=== PATIENT | female | born 1990 | race Caucasian/White ===

== ENCOUNTER 2018-09-08 21:34 | Day surgery (SDC) | payer SELFPAY ==
[~2018-09-08] VITALS: Ht 165.1 cm; Wt 111.4 kg
[2018-09-08 20:06] LABS: BASOPHILS 0.2 % (0-2); EOSINOPHILS 0.4 % (0-7); HEMATOCRIT 41.6 % (36.0-48.0); HEMOGLOBIN 14.7 g/dL (12-16); IMMATURE GRANULOCYTES 0.2 % (0-5); LYMPHOCYTES 20.2 % (15-50); MCH 28.8 pg (26.0-34.0); MCHC 35.3 g/dL (31.0-37.0); MCV 81.4 fL (80.0-100.0); MEAN PLATELET VOLUME 10.1 fL (7.4-10.4); MONOCYTES 5.3 % (2-11); NEUTROPHILS 73.7 % (40-80); PLATELET COUNT 290 10x3/uL (130-400); RBC 5.11 10x6/uL (4.00-5.40); RDW 13.3 % (11.5-14.5); WBC 9.5 10x3/uL (4.8-10.8)
[2018-09-08 20:26] LABS: ALKALINE PHOSPHATASE 47 U/L (46-116); ALT (SGPT) 24 U/L (10-68); BILIRUBIN - TOTAL 0.77 mg/dL (0.2-1.3); CALC OSMOLALITY 279 mosm/kg (275-300); CALCIUM 9.2 mg/dL (8.5-10.1); CHLORIDE - SERUM 105 mmol/L (98-107); CREATININE - SERUM 0.9 mg/dL (0.6-1.3); GLUCOSE 102 mg/dL (74-106); POTASSIUM - SERUM 3.3 mmol/L (3.5-5.1); SODIUM 141 mmol/L (136-145); UREA NITROGEN 10 mg/dL (7-18); eGFR NON AFRICAN AMERICAN 78 mL/min (90-120)
[2018-09-08 20:53] LABS: APPEARANCE CLEAR (CLEAR); BILIRUBIN NEGATIVE (NEGATIVE); COLOR YELLOW (YELLOW); GLUCOSE NEGATIVE (NEGATIVE); KETONE SMALL mg/dL (NEGATIVE); NITRITE NEGATIVE (NEGATIVE); PROTEIN NEGATIVE (NEGATIVE); UROBILINOGEN NORMAL (NORMAL)
[2018-09-08 20:54] LABS: EPITHELIAL CELLS 0-5 /hpf (0-5); RED CELLS - URINE NONE SEEN /hpf (0-5); WHITE CELLS - URINE NSEEN /hpf (0-5)
[2018-09-08 21:18] LABS: AMYLASE - SERUM 45 U/L (25-115); LIPASE 90 U/L (73-393)
--- NOTE | 2018-09-09 01:00 | NUR ---
PATIENT RECEIVED FROM RECOVERY IN STABLE CONDITION.
[2018-09-09 01:02] VITALS: BP 125/64; Ht 165.1 cm; Wt 111.4 kg
--- NOTE | 2018-09-09 01:02 | NUR ---
ADMISSION ASSESSMENT AND HISTORY DONE AT THIS TIME. PT WITH 18 GAUGE SALINE LOCK TO RIGHT A/C, TWO LAPAROSCOPIC INCISIONS TO ABDOMEN, ONE TO THE RIGHT ABDOMEN AND ONE IN THE UMBILICUS, ONE LOW TRANSVERSE ABDOMINAL INCISION NOTED. ALL CLOSED WITH GLUE AND WELL APPROXIAMATED. PAD IN PLACE WITH SCANT BLEEDING. PT GIVEN SPRITE PER REQUEST. DENIES OTHER NEEDS. WILL CONTINUE TO MONITOR.
--- NOTE | 2018-09-09 01:05 | NUR ---
PERCOCET 5/325 MG PO PER PATIENT REQUEST FOR PAIN 03/11.
--- NOTE | 2018-09-09 01:30 | NUR ---
PATIENTS FIANCE TO BEDSIDE AT THIS TIME. BLANKETS AND PILLOW PROVIDED.
--- NOTE | 2018-09-09 03:26 | NUR ---
PATIENT RESTING QUIETLY WITH EYES CLOSED, RESPIRATIONS EVEN AND NON LABORED. NO DISTRESS NOTED. BED REMAINS LOCKED IN LOW POSITION, SIDE RAILS UPX2, CALL ZUNIGA AND TRAY TABLE IN REACH. WILL CONTINUE TO MONITOR
--- NOTE | 2018-09-09 05:22 | NUR ---
DR ROUSE AT BEDSIDE DISCUSSING PLAN OF CARE WITH PATIENT. PERCOCET 5/325MG TWO TABS PO PER PT REQUEST FOR PAIN. DENIES OTHER NEEDS.
--- NOTE | 2018-09-09 05:48 | OP ---
PATIENT NAME: RIVERA MEAD MEDICAL RECORD: [id number] :86 LOCATION:[id number] ADMISSION DATE: SURGEON: BRUNO ROUSE MD DATE OF OPERATION: 09/08/2018 PREOPERATIVE DIAGNOSES: 1. Abdominal pain. 2. Pelvic mass, cannot rule out torsion. POSTOPERATIVE DIAGNOSES: 1. Abdominal pain. 2. Right ovarian mass. 3. Dermoid cyst of the right ovary. PROCEDURES: 1. Diagnostic laparoscopy. 2. Exploratory laparotomy. 3. Right salpingo-oophorectomy. SURGEON: Bruno Rouse MD HEAD OF COMMISSION DEPARTMENT: William Carlin ANESTHESIA: General anesthetic with endotracheal intubation. FINDINGS: Uterus is unremarkable. Left tube and left ovary are also unremarkable. Right ovary is enlarged to approximately 7-8 cm. The cyst has sebaceous contents and hair consistent with dermoid. SPECIMEN REMOVED: Right ovary and tube. SPECIMEN DISPOSITION: Pathology. ESTIMATED BLOOD LOSS: Less than or equal to 100 cc. FLUIDS: 1500 cc lactated Ringer's. URINE OUTPUT: Quantity sufficient void prior to this procedure. COMPLICATIONS: None. DRAINS: None. INDICATIONS: The patient is a 28-year-old female who presents to the Emergency Room with complaints of intense pelvic and abdominal pain. During workup, the patient was found to have a 7 cm cyst and torsion cannot be ruled out by history and imaging study. DESCRIPTION OF PROCEDURE: After informed consent was assured, the patient was taken to the operating room where anesthetic was obtained without difficulty. The patient was now prepped and draped in the usual sterile fashion. An incision was made at the umbilicus to accommodate a 5-mm trocar, which was inserted without difficulty. Pneumoperitoneum was now developed and the patient was placed in Trendelenburg position. Accessory ports were placed in the right OPERATIVE REPORT [id number] RIVERA MEAD lower quadrant and in the midline. The ovarian mass was manipulated into the pelvis. Inspection reveals the cyst to be a dermoid. An open procedure is now performed. Using a scalpel, the midline incision was extended to approximately 8 cm. This incision was carried down to the fascia, which was opened in the midline and extended laterally. Rectus muscles were dissected free, then . The abdomen was entered and with using Varna retractors, the opening that was manipulating into the mass was brought into view. The mass was grasped with [place] clamps and elevated to the incision site. The mass is delivered on the pedicle. This pedicle was doubly clamped with Lizet clamps and then the mass removed. A simple stitch and a [id number] stitch was applied for hemostasis at this pedicle. The pelvis was now copiously irrigated, irrigant removed, and inspection of the pedicle revealed adequate hemostasis. Fascia was closed with a running stitch of Vicryl and subcutaneous tissues reapproximated with plain gut. Subcuticular stitch is applied over the minilaparotomy incision site and laparoscopy port sites. Sponge, lap, and needle counts were correct times 2, but due to the addition of instruments during this procedure, x-ray was performed and was found to be clear. TRANSINT:[id number] Voice Confirmation ID: [id number] DOCUMENT ID: [id number] BRUNO ROUSE MD at 0548 CC: [id number] DICTATION DATE: 09/08/18 3606 TRAFFIC SIGNAL TECHNICIAN: 09/09/18 [id number] [place] [address]
[2018-09-09 07:23] VITALS: BP 104/62
--- NOTE | 2018-09-09 07:23 | NUR ---
RECEIVED PT IN SEMI-SALDIVAR'S POSITION IN BED. AWAKE. AAO X 3. VSS. HRRR WITHOUT AUDIBLE MURMUR. BBS CLEAR. BS X 4 QUADS. PT STATES PASSING GAS. NO BM YET. STATES VOIDED WITHOUT DIFFICULTY. ABDOMEN SOFT/NON-DISTENDED. 2 LAP INCISIONS AND ONE LEFT LOWER ABDOMINAL INCISION ALL WITH DERMABOND WITHOUT DRAINAGE, REDNESS OR SWELLING NOTED. PT STATES HAD SMALL AMT OF BROWN VAGINAL DISCHARGE WHEN WIPED AFTER VOIDING. NO VAGINAL DISCHARGE NOTED AT THIS TIME. NEG HOMANS' SIGN. PPP. NO EDEMA NOTED TO BLE. SCDS ON BLE. PUMP ON. SL TO RIGHT AC. SITE CLEAR. PT STATES PAIN NOW "3" ON 0-10 PAIN SCALE. STATES AWAITING SO TO ARRIVE FOR PT DISCHARGE. PT DENIES NEEDS OR C/O. SR UP X2. CALL LIGHT IN REACH.
--- NOTE | 2018-09-09 08:30 | NUR ---
PT HERE. PT STATES READY FOR DISCHARGE PAPERWORK. STATES DESIRE FOR FLU VACCINE.
[2018-09-09] MEDS ORDERED: PERCOCET 7.5/321 TAB PO (08:51)
[2018-09-09] MEDS ORDERED: IBUPROFEN800 MG PO (08:52)
--- NOTE | 2018-09-09 09:07 | NUR ---
FLU VACCINE GIVEN IM TO RIGHT DELTOID. BANDAID TO SITE. PT JESSE WELL.
--- NOTE | 2018-09-09 09:11 | NUR ---
PT C/O NAUSEA/VOMITING OF APPROX 100 ML OF LIQUID EMESIS. PHENERGAN 25 MG GIVEN IM TO RDG. BANDAID TO SITE. PT JESSE WELL.
--- NOTE | 2018-09-09 09:30 | NUR ---
PT GIVEN DISCHARGE INSTRUCTIONS. VERBALIZES UNDERSTANDING OF ALL INSTRUCTIONS. COPIES GIVEN TO PT. RX FOR PERCOCET 7.5 AND MOTRIN 800 GIVEN TO PT.
--- NOTE | 2018-09-09 09:47 | NUR ---
PT CALLS ON LIGHT. STATES READY FOR DISCHARGE. STATES NAUSEA IMPROVED. PT DISCHARGED IN STABLE CONDITION VIA WHEELCHAIR TO PRIVATE VEHICLE.
--- NOTE | 2018-09-25 08:23 | DS ---
PATIENT:RIVERA MEAD :86 MEDICAL RECORD: [id number] DISCHARGE SUMMARY ADMISSION DATE: 09/08/18 DISCHARGE DATE: 09/09/18 DATE OF ADMISSION: 09/08/2018 DATE OF DISCHARGE: 09/09/2018 ADMISSION DIAGNOSES: 1. Abdominal pain. 2. Pelvic mass. DISCHARGE DIAGNOSES: 1. Abdominal pain. 2. Pelvic mass. 3. Dermoid cyst. PROCEDURES PERFORMED WHILE HOSPITALIZED: 1. Diagnostic laparoscopy. 2. Exploratory laparotomy. 3. Right salpingo-oophorectomy. ATTENDING: Lori Rouse MD HISTORY OF PRESENT ILLNESS: See the H&P in the chart. SUMMARY OF HOSPITALIZATION: The patient was admitted to the hospital and underwent procedure without incident. At the time of discharge, she is tolerating a regular diet, voiding without difficulty. The patient has adequate pain control and will be discharged home on Percocet, Mobic, and Neurontin. Followup will be arranged in 2 weeks at [facility]. Standard postoperative precautions have been reviewed. TRANSINT:[id number] Voice Confirmation ID: [id number] DOCUMENT ID: [id number] LORI ROUSE MD at 0823 CC: [id number] DICTATION DATE: 09/09/18 0550 NET C DEVELOPER: 09/09/182027 [facility] 09/09/18 [id number] [place] [address]
== END 2018-09-09 09:47 | disposition home or self-care (01) ==
LOC: D.OPS 21:34 → EDSTATUS 22:22 → D.LD 09-09 00:45 → D.OPS 09-09 09:47
PROVIDERS: Family Medicine
DX: D27.0 Benign neoplasm of right ovary (principal); E28.8 Other ovarian dysfunction; Z53.31 Laparoscopic surgical procedure converted to open procedure; Z01.812 Encounter for preprocedural laboratory examination